=== PATIENT | male | born 1980 | race Caucasian/White ===

== ENCOUNTER 2019-04-09 12:17 | Emergency (ER) | payer OTHER ==
[2019-04-09] MEDS ORDERED: Sodium Chloride 0.9% 10 ML Syringe FLUSH PRN (13:45)
[2019-04-09] MEDS ORDERED: Ketorolac 30 MG/ML SDV IVPUSH ONE (13:45)
[2019-04-09] MEDS ORDERED: diphenhydrAMINE 50 MG/ML SDV IVPUSH ONE (13:45)
[2019-04-09] MEDS ORDERED: Metoclopramide 10 MG/2 ML SDV IVPUSH ONE (13:45)
[2019-04-09] MEDS ORDERED: Sodium Chloride 0.9% 1,000 ML IV SCH (13:45)
--- NOTE | 2019-04-09 14:44 | CT ---
Head CT Technique: Multiple axial sections through the brain were obtained. Intravenous contrast was not utilized. Comparison: Prior head CT study of 08/20/18 and MRI brain of 08/22/18. Findings: Ventricles along with basal cisterns and sulci over the convexities are within normal limits for the patient's age. No abnormal parenchymal densities are seen. No evidence of intracranial hemorrhage. No midline shift or mass-effect is appreciated. Bone window settings were reviewed which shows no acute calvarial abnormality. Mastoid sinuses appear clear. Visualized paranasal sinuses show nothing acute. Impression: 1. Nothing acute is appreciated on noncontrast head CT study. Diagnostic code #1 This report was dictated in [place] Standard Time
--- NOTE | 2019-04-09 14:50 | EDM.PDOC ---
ED HPI GENERAL MEDICAL PROBLEM - General Chief Complaint: Headache Stated Complaint: HEAD PRESSURE/HEADACHE Time Seen by Provider: 04/09/19 13:45 Source of Information: Reports: Patient, RN Notes Reviewed History Limitations: Reports: No Limitations - History of Present Illness INITIAL COMMENTS - FREE TEXT/NARRATIVE: Patient is a 39-year-old male who presents to the ED for ongoing head pressure/ headache. Patient states this is been a chronic issue for him since this last August. He does state however that the pain/pressure in his head is worse today than it has been in a while. He has been in and out of the doctor's office for evaluation, he has been evaluated by neurology, he did have a brain MRI done and was told he had a Chiari malformation. It was thought that his headaches could have been due to hypertension as well, he was started on antihypertensives , however it made his blood pressure too low so this was stopped. Patient states that there is really nothing that makes this headache/pressure much better, he states that it feels as if someone is squeezing his head with a vice , and he is having little bit of tenderness in the basal/occipital portion of his head today and this caused him to come to the ER for further evaluation. He is not complaining of any nausea or vomiting, he states he has had some mild blurred vision, and he is not had any sort of recent change in his eyeglass prescription. He further notes he is not had any other sick-like symptoms, fevers/chills, chest pain, cough/shortness of breath. Patient states that the pressure does seem to worsen when he changes positions from sitting to standing , and going upstairs. He states that the weather changes have also been causing issues with the pressure. Headache Pain Score (Numeric/FACES): 5 - Related Data Allergies Allergy/AdvReac Type Severity Reaction Status Date / Time No Known Allergies Allergy Verified 04/09/19 12:32 Home Meds: Home Meds . [No Known Home Meds] 04/09/19 [History] Past Medical History HEENT History: Reports: Impaired Vision Social & Family History - Tobacco Use Smoking Status *Q: Former Smoker Used Tobacco, but Quit: Yes Month/Year Tobacco Last Used: 2016 - Caffeine Use Caffeine Use: Reports: Soda ED ROS GENERAL - Review of Systems Review Of Systems: See Below Constitutional: Denies: Fever, Chills, Decreased Appetite HEENT: Reports: Vision Change (slight blurred vision) Respiratory: Denies: Shortness of Breath, Cough Cardiovascular: Denies: Chest Pain, Blood Pressure Problem GI/Abdominal: Denies: Abdominal Pain, Constipation, Diarrhea, Nausea, Vomiting Neurological: Reports: Headache. Denies: Confusion, Dizziness, Syncope, Difficulty Walking, Weakness - Physical Exam Exam: See Below Exam Limited By: No Limitations General Appearance: Alert, WD/WN, No Apparent Distress Eye Exam: Bilateral Eye: EOMI, Normal Inspection, PERRL Ears: Normal External Exam, Normal Canal, Hearing Grossly Normal, Normal TMs Nose: Normal Inspection Throat/Mouth: Normal Inspection, Normal Lips, Normal Teeth, Normal Gums, Normal Oropharynx, Normal Voice, No Airway Compromise Head Exam: Atraumatic, Normocephalic Neck: Normal Inspection Respiratory/Chest: No Respiratory Distress, Lungs Clear, Normal Breath Sounds, No Accessory Muscle Use, Chest Non-Tender Cardiovascular: Normal Peripheral Pulses, Regular Rate, Rhythm, No Murmur GI/Abdominal: Normal Bowel Sounds, Soft, Non-Tender, No Distention, No Mass Neuro Exam (Abbreviated): Alert, Oriented, CN II-XII Intact (grossly), Normal Cognition, Normal Gait, No Motor/Sensory Deficits Extremities: Normal Inspection, Normal Range of Motion, Normal Capillary Refill Psychiatric: Normal Affect, Normal Mood Skin Exam: Warm, Dry, Intact, Normal Color, No Rash Course - Vital Signs Last Recorded V/S: Last Vital Signs Temp 98.1 F 04/09/19 12:29 Pulse 80 04/09/19 12:29 Resp 16 04/09/19 12:29 BP 150/98 H 04/09/19 12:29 Pulse Ox 95 04/09/19 12:29 - Orders/Labs/Meds Orders: Active Orders 24 hr Category Date Time Status Peripheral IV Care [RC] . DIRECTED Care 04/09/19 13:45 Ordered Sodium Chloride 0.9% [Normal Saline] 1,000 ml Med 04/09/19 13:45 Ordered IV ASDIRECTED Sodium Chloride 0.9% [Saline Flush] Med 04/09/19 13:45 Ordered 10 ml FLUSH ASDIRECTED PRN Peripheral IV Insertion Adult [OM.PC] Routine Oth 04/09/19 13:45 Ordered Medication Orders Sodium Chloride (Normal Saline) 1,000 mls @ 999 mls/hr IV ASDIRECTED LO Last Admin: 04/09/19 14:31 Dose: 999 mls/hr Sodium Chloride (Saline Flush) 10 ml FLUSH ASDIRECTED PRN PRN Reason: Keep Vein Open Last Admin: 04/09/19 14:30 Dose: 10 ml Labs: Laboratory Tests 04/09/19 04/09/19 Range/Units 15:04 15:04 WBC 6.64 (4.23-9.07) K/mm3 RBC 4.52 L (4.63-6.08) M/mm3 Hgb 13.2 L D (13.7-17.5) gm/dl Hct 40.8 (40.1-51.0) % MCV 90.3 D (79.0-92.2) fl MCH 29.2 (25.7-32.2) pg MCHC 32.4 (32.2-35.5) g/dl RDW Std Deviation 45.2 H (35.1-43.9) fL Plt Count 190 (163-337) K/mm3 MPV 11.5 (9.4-12.3) fl Neut % (Auto) 42.6 (34.0-67.9) % Lymph % (Auto) 37.2 (21.8-53.1) % [place] % (Auto) 15.2 H (5.3-12.2) % Eos % (Auto) 4.2 (0.8-7.0) Baso % (Auto) 0.6 (0.1-1.2) % Neut # (Auto) 2.83 (1.78-5.38) K/mm3 Lymph # (Auto) 2.47 (1.32-3.57) K/mm3 [place] # (Auto) 1.01 H (0.30-0.82) K/mm3 Eos # (Auto) 0.28 (0.04-0.54) K/mm3 Baso # (Auto) 0.04 (0.01-0.08) K/mm3 Manual Slide Review Abnormal smear Sodium 142 (136-145) mEq/L Potassium 3.6 (3.5-5.1) mEq/L Chloride 107 (98-107) mEq/L Carbon Dioxide 22 (21-32) mEq/L Anion Gap 16.6 H (5-15) BUN 16 (7-18) mg/dL Creatinine 0.9 (0.7-1.3) mg/dL Est Cr Clr Drug Dosing 118.56 mL/min Estimated GFR (MDRD) > 60 (>60) mL/min BUN/Creatinine Ratio 17.8 (14-18) Glucose 118 H (74-106) mg/dL Calcium 8.3 L (8.5-10.1) mg/dL Total Bilirubin 0.3 (0.2-1.0) mg/dL AST 10 L (15-37) U/L ALT 24 (16-63) U/L Alkaline Phosphatase 84 (46-116) U/L Total Protein 6.6 (6.4-8.2) g/dl Albumin 3.5 (3.4-5.0) g/dl Globulin 3.1 gm/dL Albumin/Globulin Ratio 1.1 (1-2) Meds: Medications Generic Name Dose Route Start Last Admin Trade Name Freq PRN Reason Stop Dose Admin Sodium Chloride 1,000 mls @ 999 mls/hr 04/09/19 13:45 04/09/19 14:31 Normal Saline IV 999 mls/hr ASDIRECTED LO Administration Sodium Chloride 10 ml 04/09/19 13:45 04/09/19 14:30 Saline Flush FLUSH 10 ml ASDIRECTED PRN Administration Keep Vein Open Discontinued Medications Generic Name Dose Route Start Last Admin Trade Name Freq PRN Reason Stop Dose Admin Diphenhydramine HCl 25 mg 04/09/19 13:45 04/09/19 14:30 Benadryl IVPUSH 04/09/19 13:46 25 mg ONETIME ONE Administration Ketorolac Tromethamine 30 mg 04/09/19 13:45 04/09/19 14:30 Toradol IVPUSH 04/09/19 13:46 30 mg ONETIME ONE Administration Metoclopramide HCl 10 mg 04/09/19 13:45 04/09/19 14:30 Reglan IVPUSH 04/09/19 13:46 10 mg ONETIME ONE Administration - Re-Assessments/Exams Free Text/Narrative Re-Assessment/Exam: 04/09/19 14:54 Patient presents to the ED for evaluation of ongoing head pressure/headache. Due to him reporting this pain is much worse than it normally is, I did feel a CT was warranted so I did order a head CT to rule out any worsening changes. This was all okay, nothing acute appreciated on the noncontrast head CT done today. I have ordered a CBC and CMP for further evaluation, and did have an IV placed with some fluids, 10 mg Reglan, 30 mg Toradol, and 25 mg Benadryl for headache treatment. 04/09/19 16:20 Patient's laboratory evaluation demonstrates no abnormalities. Head CT was also within normal limits, no acute abnormality is found at today's visit. Patient was reassessed at bedside, states that he still having some head pressure, however its not anything he cannot live with. He is frustrated at this time as lab tests and imaging keep getting done and no one can find an answer. I sympathize with him, but I told him there was nothing more emergent that I could do at this ER visit, he seems to be understanding and will follow up with his regular provider next week, and return as needed if things worsen. Departure - Departure Time of Disposition: 16:21 Disposition: Home, Self-Care 01 Condition: Fair Clinical Impression: Pressure in head - Discharge Information *PRESCRIPTION DRUG MONITORING PROGRAM REVIEWED*: No *COPY OF PRESCRIPTION DRUG MONITORING REPORT IN PATIENT VERONICA: No Referrals: PCP,None [Primary Care Provider] - Forms: ED Department Discharge Additional Instructions: You were evaluated in the ER today for your increasing head pressure and headache. You were given some IV fluids, and IV medications to help with headache, however you state this did not help much to relieve her symptoms. A head CT was done at today's visit, and demonstrates everything is within normal limits there were no focal abnormalities that would explain why you are having increased head pressure at today's visit. Laboratory evaluation also demonstrates normal values, or nothing that would be contributing to your head pressure at this time. Please keep your appointment with Dr. Negrete next week for reevaluation of your symptoms, and a possible further neurological work-up if it is warranted. Please return to the ER at any time however if your symptoms change or worsen. Sepsis Event Note - Evaluation Sepsis Screening Result: No Definite Risk - Focused Exam Vital Signs: Vital Signs Temp Pulse Resp BP Pulse Ox 04/09/19 12:29 98.1 F 80 16 150/98 H 95 Date Exam was Performed: 04/09/19 Time Exam was Performed: 16:20 - My Orders Last 24 Hours: My Active Orders 04/09/19 13:45 Peripheral IV Care [RC] . DIRECTED Sodium Chloride 0.9% [Normal Saline] 1,000 ml IV ASDIRECTED Sodium Chloride 0.9% [Saline Flush] 10 ml FLUSH ASDIRECTED PRN Peripheral IV Insertion Adult [OM.PC] Routine - Assessment/Plan Last 24 Hours: My Active Orders 04/09/19 13:45 Peripheral IV Care [RC] . DIRECTED Sodium Chloride 0.9% [Normal Saline] 1,000 ml IV ASDIRECTED Sodium Chloride 0.9% [Saline Flush] 10 ml FLUSH ASDIRECTED PRN Peripheral IV Insertion Adult [OM.PC] Routine
== END 2019-04-09 16:37 | disposition home or self-care (01) ==
LOC: JD.ED 12:17
DX: R51 Headache (principal); I10 Essential (primary) hypertension; Z87.891 Personal history of nicotine dependence
CPT/HCPCS: 36415; 70450; 80053; 85025; 96361; 96374; 96375; 99284; J1200; J1885; J2765; J7030; 99283

== ENCOUNTER 2021-10-28 09:32 | Emergency (ER) | payer OTHER ==
[2021-10-28] MEDS ORDERED: Ketorolac 15 MG/ML SDV IVPUSH ONE ×2 (10:08→11:57)
[2021-10-28] MEDS ORDERED: Metoclopramide 10 MG/2 ML SDV IVPUSH ONE (10:08)
[2021-10-28] MEDS ORDERED: Lactated Ringers 1,000 ML IV ONE (10:08)
[2021-10-28] MEDS ORDERED: diphenhydrAMINE 50 MG/ML SDV IVPUSH ONE (10:08)
[2021-10-28] MEDS ORDERED: Morphine 4 MG/ML Syringe IVPUSH ONE (11:57)
== END 2021-10-28 13:10 | disposition home or self-care (01) ==
LOC: JD.ED 09:32
DX: R51.9 Headache, unspecified (principal)
CPT/HCPCS: 36415; 70450; 70450-26; 80053; 85025; 93005; 93010; 96361; 96374; 96375; 96376; 99283; 99284-25; J1200; J1885; J2270; J2765; J7120

== ENCOUNTER 2023-09-01 12:54 | Emergency (ER) | payer OTHER ==
[2023-09-01] MEDS: Ketorolac 30 MG/ML SDV IVPUSH ONE (13:28)
[2023-09-01] MEDS: Ondansetron 4 MG/2 ML SDV IVPUSH ONE (13:29)
[2023-09-01] MEDS: HYDROmorphone 0.5 MG/0.5 ML Syringe IVPUSH ONE (13:29)
[2023-09-01] MEDS: Sodium Chloride 0.9% 10 ML Syringe FLUSH PRN (13:29)
[2023-09-01] MEDS: Sodium Chloride 0.9% 1,000 ML IV STA (13:29)
[2023-09-01 13:50] LABS: BASOPHILS PERCENT AUTO 0.3 % (0.0-1.0); EOSINOPHILS PERCENT AUTO 0.2 % (0.0-6.0); HEMATOCRIT 44.7 % (42.0-52.0); IMMATURE GRAN ABSOLUTE AUTO 0.07 K/mm3 (0.00-0.05); IMMATURE GRAN PERCENT AUTO 0.6 % (0.0-0.4); LYMPHOCYTES ABSOLUTE AUTO 1.6 K/mm3 (1.0-4.8); LYMPHOCYTES PERCENT AUTO 13.4 % (24.0-44.0); MEAN CORPUSCULAR HEMOGLOBIN 29.4 pg (28.0-32.0); MEAN CORPUSCULAR HGB CONC 33.6 g/dl (32.0-36.0); MEAN CORPUSCULAR VOLUME 87.5 fl (83.0-99.0); MEAN PLATELET VOLUME 11.7 fl (9.4-12.4); MONOCYTES ABSOLUTE AUTO 1.6 K/mm3 (0.0-0.8); MONOCYTES PERCENT AUTO 13.9 % (0.0-8.0); NEUTROPHILS ABSOLUTE AUTO 8.3 K/mm3 (1.8-7.7); NEUTROPHILS PERCENT AUTO 71.6 % (41.0-71.0); PLATELET COUNT,PLT 200 K/mm3 (150-400); RED BLOOD CELL COUNT 5.11 M/mm3 (4.52-5.90); WHITE BLOOD CELL COUNT,WBC 11.62 K/mm3 (3.9-11.3)
[2023-09-01 13:53] LABS: A/G RATIO 1.1 (1-2); BILIRUBIN TOTAL 0.6 mg/dL (0.2-1.0); BUN/CREATININE RATIO 16.7 (14-18); CREATININE 1.8 mg/dL (0.7-1.3); EST CRCL DRUG DOSING (CG) 56.88 mL/min; PROTEIN TOTAL,TP 7.6 g/dl (6.4-8.2)
[2023-09-01 14:50] LABS: SLIDE REVIEW ABNORMAL SMEAR
[2023-09-01 14:52] LABS: APPEARANCE,URINE CLEAR (Clear); BILIRUBIN,URINE NEGATIVE (Negative); COLOR,URINE YELLOW (Yellow); GLUCOSE,URINE NEGATIVE (Negative); KETONES,URINE NEGATIVE (Negative); LEUKOCYTE ESTERASE,URINE NEGATIVE (Negative); NITRITE,URINE NEGATIVE (Negative); OCCULT BLOOD,URINE TRACE-INTACT (Negative); PH,URINE 6.5 (5.0-8.0); PROTEIN,URINE NEGATIVE (Negative); UROBILINOGEN,URINE 0.2 (0.2-1.0)
[2023-09-01 16:01] LABS: BACTERIA,URINE FEW /hpf (FEW); MUCUS,URINE FEW /hpf (FEW); RBC,URINE 0-5 /hpf (0-5); SQUAMOUS EPITHELIAL CELLS,UR 0-5 /hpf (0-5); WBC,URINE 0-5 /hpf (0-5)
== END 2023-09-01 16:14 | disposition home or self-care (01) ==
LOC: JD.ED 12:54
DX: N13.2 Hydronephrosis with renal and ureteral calculous obstruction (principal); Z79.899 Other long term (current) drug therapy
CPT/HCPCS: 36415; 74176; 80053; 81001; 85025; 86140; 96361; 96374; 96375; 99284; J1170; J1885; J2405; J3490; J7030